=== PATIENT | male | born 1990 | race Asian ===

== ENCOUNTER 2017-04-16 16:46 | Emergency (ER) | payer OTHER ==
[~2017-04-16] VITALS: Wt 50.0 kg
--- NOTE | 2017-04-16 18:22 | RADRPT ---
PROCEDURE: XR Chest. CLINICAL INDICATION: Cough. TECHNIQUE: Single frontal view of the chest was obtained COMPARISON: None FINDINGS: The heart and mediastinum are within normal limits. Left lower lobe dense pneumonia. Right lung is clear. There is no pleural effusion or pneumothorax. IMPRESSION: Left lower lobe dense pneumonia. RPTAT: [facility] Physician Vinicius Date Time Electronically viewed and signed by Phyllis Dwyer Physician on 04/16/2017 18:21 RS/
[2017-04-16] MEDS ORDERED: AZIT250T94 PO (18:32)
[2017-04-16] MEDS ORDERED: ALBU18HF INHALATION (18:32)
[2017-04-16] MEDS ORDERED: LIDOCAINE 1% (MDV) 20 ML INJ SC ONE (19:00)
[2017-04-16] MEDS ORDERED: CEFTRIAXONE 1 GM INJ IM ONE (19:00)
--- NOTE | 2017-04-17 00:22 | ERD ---
ER Documentation Chief Complaint Date/Time DATE: 04/17/17 TIME: 00:19 Chief Complaint BODY PAINS, SOB, FEVER AT HOME HPI This patient is a 26-year-old male presenting to the emergency department with complaints of cough, fatigue, and left-sided chest pain with deep inspiration. Additionally he has had headache. The patient's symptoms have been ongoing intermittently for 1 week. Shortness of breath symptoms are worse at night. Symptoms are worsening now. The patient went to a clinic in [place] earlier today and was diagnosed with pneumonia and was sent here for further evaluation and possible treatment. The patient denies any urinary symptoms, nausea, vomiting, diarrhea, or other symptoms currently. ROS All systems reviewed and are negative except as per history of present illness. Medications Home Meds Active Scripts Albuterol Sulfate* (Ventolin HFA*) 18 Gm Hfa.aer.ad, 2 PUFF INHALATION Q4H, #1 INHALER Prov:JUANA MUNOZ PA-C 04/16/17 Azithromycin* (Zithromax*) 250 Mg Tablet, 250 MG PO .ZPACK DIRECTED, #6 TAB TAKE 500 MG (2 TABS) THE FIRST DAY THEN 250 MG (1 TAB) DAYS 2-5 Prov:JUANA MUNOZ PA-C 04/16/17 Allergies Allergies: Coded Allergies: No Known Drug Allergies (Verified Allergy, Unknown, 04/16/17) PMhx/Soc History of Surgery: No Anesthesia Reaction: No Hx Neurological Disorder: No Hx Respiratory Disorders: No Hx Cardiac Disorders: No Hx Psychiatric Problems: No Hx Miscellaneous Medical Probl: No Hx Alcohol Use: No Hx Substance Use: No Hx Tobacco Use: No Smoking Status: Never smoker FmHx Noncontributory for chief complaint Physical Exam Vitals Vital Signs Date Time Temp Pulse Resp B/P Pulse Ox O2 Delivery O2 Flow Rate FiO2 04/16/17 16:49 99.8 110 17 15/99 98 Physical Exam Const: Nontoxic, well-appearing male in no acute distress. Head: Atraumatic Eyes: Normal Conjunctiva ENT: Normal External Ears, Nose and Mouth. Neck: Full range of motion..~ No meningismus. Resp: Clear to auscultation bilaterally Cardio: Regular rate and rhythm, no murmurs Abd: Soft, non tender, non distended. Normal bowel sounds Skin: No petechiae or rashes Back: No midline or flank tenderness Ext: No cyanosis, or edema Neur: Awake and alert Psych: Normal Mood and Affect Results 24 hrs Current Medications Medications (Trade) Dose Ordered Sig/Elyssa Route PRN Reason Start Time Stop Time Status Last Admin Dose Admin Ceftriaxone Sodium (Rocephin) 1 gm ONCE ONCE IM 04/16/17 19:00 04/16/17 19:01 DC 04/16/17 19:25 Lidocaine (Xylocaine 1% (Mdv) 20 ml) 20 ml ONCE ONCE SC 04/16/17 19:00 04/16/17 19:01 DC 04/16/17 19:24 [place] [id number] Radiology Main Line: [phone] DIAGNOSTIC IMAGING REPORT Patient: AMY CRENSHAW : 1990 Age: 26 Sex: M MR #: [id number] DOS: 04/16/17 0000 Ordering MD: JUANA MUNOZ PA-C Location: [facility] Room/Bed: PROCEDURE: XR Chest. CLINICAL INDICATION: Cough. TECHNIQUE: Single frontal view of the chest was obtained COMPARISON: None FINDINGS: The heart and mediastinum are within normal limits. Left lower lobe dense pneumonia. Right lung is clear. There is no pleural effusion or pneumothorax. IMPRESSION: Left lower lobe dense pneumonia. RPTAT: [facility] Physician Vinicius Date Time Electronically viewed and signed by Physician Vinicius on 04/16/2017 18:21 RS/ CC: JUANA MUNOZ PA-C Procedures/[facility] 26-year-old male presenting to the emergency department with complaints of cough , fatigue, headache, and chest pain on deep inspiration. On physical examination the patient's lungs are clear to auscultation bilaterally. The patient was slightly tachycardic at 110 bpm on initial presentation, I believe this is secondary to acute illness. Chest x-ray was positive for a left lower lobe density consistent with pneumonia. This was interpreted by the radiologist. The patient is stable for outpatient management with a prescription for albuterol and azithromycin, however he was given IM Rocephin 1 g in the department. The patient understood the discharge plan and diagnosis. I have low suspicion for sepsis, acute coronary syndrome, or other emergent conditions at this time. The patient is to have close follow-up with the primary care physician. I discussed strict ER return precautions with the patient prior to discharge and he demonstrated good understanding. Departure Diagnosis: Primary Impression: Pneumonia Condition: Fair Patient Instructions: Pneumonia (Adult) Additional Instructions: Follow up with your PCP within the next 1-3 days for a repeat evaluation and a possible referral to a specialist, if required. Return the the emergency department immediately if symptoms worsen or change. If you have any questions regarding medications, ask your pharmacist or us before you leave. If any adverse reactions, occur while taking your medications, discontinue the treatment and return to the emergency department immediately. If any new or worsening symptoms, uncontrolled fevers, or other unexplained symptoms occur, return to the emergency department immediately. Take your medications as directed, and complete the entire course of treatment. JUANA MUNOZ PA-C Apr 17, 2017 00:22
== END 2017-04-16 19:42 | disposition home or self-care (01) ==
LOC: FTE 16:46
DX: J18.9 Pneumonia, unspecified organism (principal)
CPT/HCPCS: 71010; J0696; 96372